=== PATIENT | female | born 1965 | race Hispanic/Latino ===

== ENCOUNTER 2018-02-11 10:46 | Emergency (ER) | payer BC ==
[~2018-02-11] VITALS: Ht 154.9 cm; Wt 56.2 kg
--- OUTSIDE RECORDS SUMMARY | 2018-02-11 10:49 | XMS REPORT | Summary of Care ---
Author Author [facility] Organization [facility] Address Unknown Phone Unavailable Encounter HQ Encntr_alias(CARL) [id number] Date(s): 02/08/16 - 02/08/16 [facility] [address] [place] [id number]- Discharge Disposition: Home or Self Care Attending Physician: Kelvin Garza MD Referring Physician: Kelvin Garza MD Vital Signs No data available for this section Problem List No data available for this section Allergies, Adverse Reactions, Alerts No data available for this section Medications No data available for this section Results No data available for this section Immunizations No data available for this section Procedures No data available for this section Social History No data available for this section Assessment and Plan No data available for this section
--- OUTSIDE RECORDS SUMMARY | 2018-02-11 10:49 | XMS REPORT | Continuity of Care Document ---
Author Author [facility] Interface Address Unknown Phone Unavailable Problems Problem Status Onset Date Classification Date Reported Comments Source ROUTINE Active 01/20/2017 [facility] WWE Active 01/20/2017 [facility] V76.11 - SCREEN MAMMOGRA Active 04/27/2014 [facility] ROUTINE/SCREENING Active 10/25/2010 [facility] ENCNTR SCREEN MAMMOGRAM FOR MALIGNANT NE Active [facility] Medications Medication Details Route Status Patient Instructions Ordering Provider Order Date Source Allergies, Adverse Reactions, Alerts Substance Category Reaction Severity Reaction type Status Date Reported Comments Source Immunizations Immunization Date Given Site Status Last Updated Comments Source Results Order Name Results Value Reference Range Date Interpretation Comments Source Breast Mammo Scrn DEBRA incl CAD MA Breast Mammo Scrn DEBRA incl CAD MA BILATERAL DIGITAL SCREENING MAMMOGRAM WITH CAD WITH AUGMENTATION: 02/15/2017 CLINICAL: /Z12.31 Encounter For Screening Mammogram For Malignant Neoplasm Of Breast. Current study was evaluated with a Computer Aided Detection (CAD) system. COMPARISON:Comparison is made to exams dated: 02/08/2016 mammogram, 05/05/2014 mammogram, and 11/28/2011 mammogram - [facility]. TECHNIQUE: Mammographic views were obtained using digital acquisition. Reqluta Version 1.1 was utilized for computer aided detection. FINDINGS: There are scattered fibroglandular densities in both breasts. Scattered benign bilateral calcifications are noted. Bilateral augmentation is noted. The implant margins are smooth. No capsular calcifications are noted. There are benign scattered calcifications in both breasts. No significant masses, calcifications, or other findings are seen in either breast. There has been no significant interval change. IMPRESSION: BENIGN RECOMMENDATION:There is no mammographic evidence of malignancy. A 1 year screening mammogram is recommended.(02/16/2018) This exam was interpreted at [id number] for [facility] Breast [place], [place]. Yo Guo M.D. wp/:02/18/2017 09:10:06 Pile Operator(s): RT Trudy (R)(M), [facility] letter sent: BI-RADS 1/2 Mammogram BI-RADS: 2 Benign 02/15/2017 - - Read by: Yo Guo MD Dictated Date/time: 02/18/17 09:10 Electronically Signed by: Yo Guo MD 02/18/17 09:10 FINAL REPORT [facility] Digital Mammo Screening Debra MA Digital Mammo Screening Debra MA - DIGITAL MAMMO SCREENING DEBRA MA BILATERAL DIGITAL SCREENING MAMMOGRAM WITH CAD: 02/08/2016 CLINICAL: Z12.31 Encounter For Screening Mammogram For Malignant Neoplasm Of Breast. Current study was evaluated with a Computer Aided Detection (CAD) system. Comparison is made to exams dated: 05/05/2014 mammogram, 11/28/2011 mammogram, 11/01/2010 mammogram, 10/04/2009 mammogram and 07/13/2008 mammogram - [facility]. There are scattered fibroglandular densities in both breasts. Bilateral augmentation is noted. The implant margins are smooth. No capsular calcificatons are noted. There are benign scattered calcifications in both breasts. No significant masses, calcifications, or other findings are seen in either breast. There has been no significant interval change. IMPRESSION: BENIGN There is no mammographic evidence of malignancy. A 1 year screening mammogram is recommended. Yo Guo M.D. wp/:02/09/2016 11:10:47 Pile Operator: Elizabeth Polo RT(R)(M), [facility] This exam was dictated and interpreted by [id number] for [facility] Breast [place], [place]. letter sent: Bilateral Benign Mammogram BI-RADS: 2 Benign 02/08/2016 - - Read by: Yo Guo MD Dictated Date/time: 02/09/16 11:10 Electronically Signed by: Yo Guo MD 02/09/16 11:10 FINAL REPORT [facility] Digital Mammo Screening Debra MA Digital Mammo Screening Debra MA - DIGITAL MAMMO SCREENING DEBRA MA BILATERAL DIGITAL SCREENING MAMMOGRAM WITH CAD: 05/05/2014 CLINICAL: Routine. Current study was evaluated with a Computer Aided Detection (CAD) system. Comparison is made to exams dated: 11/28/2011 mammogram, 11/01/2010 mammogram, 10/04/2009 mammogram and 07/13/2008 mammogram - [facility]. The tissue of both breasts is heterogeneously dense, which could obscure detection of small masses. There are benign scattered calcifications in both breasts. Bilateral breast implants are stable and intact. No significant masses, calcifications, or other findings are seen in either breast. There has been no significant interval change. IMPRESSION: BENIGN There is no mammographic evidence of malignancy. A 1 year screening mammogram is recommended. Bry Kahn sbl/penrad:05/05/2014 15:11:06 Pile Operator: Farzana CHACON)([place]), [facility] This exam was dictated and interpreted by [id number] for [facility]. letter sent: Normal exam Mammogram BI-RADS: 2 Benign 05/05/2014 - - Read by: Bry Kahn MD Dictated Date/time: 05/05/14 15:11 Electronically Signed by: Bry Kahn MD 05/05/14 15:11 FINAL REPORT [facility] Vital Signs Vital Sign Value Date Comments Source Encounters Location Location Details Encounter Type Encounter Number Reason For Visit Attending Provider ADM Date DC Date Status Source [facility] Outpatient [id number] ROUTINE/SCREENING EDWARD EMAMARGARETH JERALD 11/01/2010 11/01/2010 Active [facility] Outpatient [id number] ROUTINE EDWARD CARLEE JERALD 11/28/2011 Active [facility] Outpatient [id number] Edward Carlee Jerald 05/05/2014 05/06/2014 [facility] Outpatient [id number] Edward Carlee [place] 02/08/2016 02/09/2016 [facility] Outpatient [id number] Bib Presley 02/15/2017 02/16/2017 [facility] Procedures Procedure Code Date Perfomer Comments Source
--- OUTSIDE RECORDS SUMMARY | 2018-02-11 10:49 | XMS REPORT | Summary of Care ---
Author Organization Unknown Address Unknown Phone Unavailable Encounter HQ Encntr_demond(CARL) [id number] Date(s): 05/05/14 - 05/05/[address] [address]- Discharge Disposition: Home Physician Attending: Kelvin Garza MD Physician_Referring: Kelvin Garza MD Vital Signs No data [...]
--- OUTSIDE RECORDS SUMMARY | 2018-02-11 10:49 | XMS REPORT | Summary of Care ---
Author Author [facility] Organization [facility] Address Unknown Phone Unavailable Encounter HQ Encntr_alias(FIN) [id number] Date(s): 02/15/17 - 02/15/17 [facility] [address] [place] [address]- Discharge Disposition: Home or Self Care Attending Physician: Bib Presely MD Admitting Physician: Bib Presley MD Referring Physician: Kelvin Garza MD Vital [...]
[2018-02-11] MEDS ORDERED: SODIUM CHLORIDE 0.9% 1000ML 1,000 ML IV STA (11:30)
[2018-02-11] MEDS ORDERED: ONDANSETRON HCL INJ 2 MG/ML VIAL IV NR (11:30)
[2018-02-11 12:02] LABS: BASOPHILS % 0.3 % (0.0-1.0); EOSINOPHILS % 0.2 % (0.0-6.0); HEMOGLOBIN 12.7 g/dL (12.0-16.0); LYMPHOCYTES # (AUTO) 1.5 (1.0-3.2); LYMPHOCYTES % 11.8 % (18.0-39.1); MEAN CORPUSCULAR HEMOGLOBIN 28.5 pg (28-32); MEAN CORPUSCULAR HGB CONC 33.4 g/dL (31-35); MEAN CORPUSCULAR VOLUME 85.4 fL (81-99); MONOCYTES # (AUTO) 0.5 (0.2-0.8); NEUTROPHILS # (AUTO) 10.3 (2.1-6.9); NEUTROPHILS % 83.1 % (38.7-80.0); PLATELET COUNT 329 x10e3/uL (140-360); RED BLOOD COUNT 4.45 x10e6/uL (3.6-5.1); RED CELL DISTRIBUTION WIDTH 13.1 % (11.7-14.4)
[2018-02-11 12:13] LABS: COLOR,URINE YELLOW (YELLOW)
[2018-02-11 12:14] LABS: BILIRUBIN,URINE NEGATIVE (NEGATIVE); CLARITY,URINE SL CLOUDY (CLEAR); KETONES,URINE 2+ (NEGATIVE); LEUKOCYTE ESTERASE ,URINE NEGATIVE (NEGATIVE); NITRITE,URINE NEGATIVE (NEGATIVE); PROTEIN,URINE DIPSTICK NEGATIVE (NEGATIVE); URINE UROBILINOGEN 0.2 mg/dL (0.2 - 1)
[2018-02-11 12:28] LABS: ALANINE AMINOTRANSFERASE 35 IU/L (0-55); ALBUMIN 3.6 g/dL (3.5-5.0); ALBUMIN/GLOBULIN RATIO 0.9 (0.8-2.0); ALKALINE PHOSPHATASE 91 IU/L (40-150); ANION GAP 14.2 mmol/L (8-16); BLOOD UREA NITROGEN 9 mg/dL (7-26); BUN/CREATININE RATIO 14 (6-25); CALCIUM 9.4 mg/dL (8.4-10.2); CARBON DIOXIDE 26 mmol/L (22-29); CHLORIDE 101 mmol/L (98-107); CREATINE KINASE 32 IU/L (29-168); CREATININE, SERUM 0.65 mg/dL (0.57-1.11); EST GLOMERULAR FILTRATION RATE > 60 ML/MIN (60-); GLUCOSE 98 mg/dL (74-118); POTASSIUM 3.2 mmol/L (3.5-5.1); SODIUM 138 mmol/L (136-145)
[2018-02-11 12:38] LABS: RBC,URINE 0-5 /HPF (0-5); WBC,URINE (MAN) 0-5 /HPF (0-5)
[2018-02-11 12:39] LABS: BACTERIA,URINE FEW /HPF; EPITHELIAL CELLS,URINE RARE /LPF
--- NOTE | 2018-02-11 13:14 | Diagnostic Imaging Report ---
CT BRAIN WO HISTORY: Headache COMPARISON: None. TECHNIQUE: Noncontrast axial scans were obtained from skull base to the vertex. Coronal and sagittal reconstructions obtained from the axial data. One or more of the following dose reduction techniques were used: Automated exposure control, adjustment of the mA and/or kV according to patient size, and/or utilization of iterative reconstruction technique. DISCUSSION: Scalp/Skull: Unremarkable. Brain sulci: Appropriate for patient's age. Ventricles: Normal in size and configuration. No hydrocephalus. Extra-axial spaces: No masses or fluid collections. Parenchyma: Small cortical calcification in the anterior left inferior frontal gyrus (pars orbitalis) is present. Mild globi pallidi calcification is likely age-related. Otherwise, no masses, hemorrhage, or large vascular territory acute infarct. Dural sinuses: No abnormal densities. Sellar/Suprasellar region: Intact. Skull base: Intact. Incidental findings: None. IMPRESSION: 1. No acute intracranial abnormalities. 2. Small anterior left inferior frontal gyrus cortical calcification may be from remote infection or inflammation (i.e. neurocysticercosis). Signed by: Dr. Mark Anthony Car M.D. on 02/11/2018 1:11 PM
--- NOTE | 2018-02-11 13:23 | Diagnostic Imaging Report ---
EXAM: XR CHEST 2 VIEWS DATE: 02/11/2018 11:31 AM INDICATION: migraine COMPARISON: None FINDINGS: Lines and Tubes: None Heart and Mediastinum: No acute cardiomediastinal findings. Lungs and Pleura: No significant pleural effusion, pneumothorax, or focal consolidation. Bones and Soft Tissues: No acute findings. IMPRESSION: 1. No acute cardiopulmonary findings. Signed by: Dr. Eddi Lee MD on 02/11/2018 1:19 PM
[2018-02-11] MEDS ORDERED: KETOROLAC TROMETHAMINE 30 MG/ML VIAL IV ONE (13:45)
[2018-02-11 16:34] VITALS: BP 108/71
== END 2018-02-11 16:39 | disposition home or self-care (01) ==
LOC: ER 10:46
DX: G44.89 Other headache syndrome (principal); R11.0 Nausea
CPT/HCPCS: 36415; 70450; 71046; 80053; 81001; 82550; 82553; 84484; 85025; 87086; 99284; J1885; J2405; J7030